=== PATIENT | female | born 1965 | race Caucasian/White ===

== ENCOUNTER 2017-05-01 08:52 | Day surgery (SDC) | payer BC, OTHER ==
[2017-05-01] MEDS ORDERED: PROPOFOL 40 ML (10:11)
[2017-05-01] MEDS ORDERED: LIDOCAINE 2% (SDV) 5 ML INJ (10:11)
[2017-05-01] MEDS ORDERED: MIDAZOLAM 1 MG/ML 2 ML INJ (10:50)
[2017-05-01] MEDS ORDERED: PROPOFOL 20 ML (10:50)
== END 2017-05-01 13:48 | disposition home or self-care (01) ==
LOC: GIL 08:52
DX: Z12.11 Encounter for screening for malignant neoplasm of colon (principal); K64.8 Other hemorrhoids; K57.90 Diverticulosis of intestine, part unspecified, without perforation or abscess without bleeding
CPT/HCPCS: 45378